=== PATIENT | female | born 1965 | race Caucasian/White ===

== ENCOUNTER 2017-10-25 12:05 | Emergency (ER) | payer OTHER ==
[~2017-10-25] VITALS: Ht 172.7 cm; Wt 82.0 kg
[~2017-10-25 12:05] MED LIST: IBUP-2070 PO; OMEP20 PO
[2017-10-25] MEDS ORDERED: DIPH12.55 PO (12:09)
[2017-10-25] MEDS ORDERED: PERM1LIQ MC (12:09)
[2017-10-25 13:01] VITALS: BP 147/86
[2017-10-25] MEDS ORDERED: DiphenhydrAMINE/ZINC ACET 30 GM CREAM TP ONE (13:15)
== END 2017-10-25 13:57 | disposition home or self-care (01) ==
LOC: EMS 12:06
DX: L03.113 Cellulitis of right upper limb (principal); S40.861A Insect bite (nonvenomous) of right upper arm, initial encounter; S40.862A Insect bite (nonvenomous) of left upper arm, initial encounter; S80.862A Insect bite (nonvenomous), left lower leg, initial encounter; S80.861A Insect bite (nonvenomous), right lower leg, initial encounter; F17.210 Nicotine dependence, cigarettes, uncomplicated; W57.XXXA Bitten or stung by nonvenomous insect and other nonvenomous arthropods, initial encounter; Y93.89 Activity, other specified; Y92.89 Other specified places as the place of occurrence of the external cause; Y99.8 Other external cause status
CPT/HCPCS: 99283; 99406